=== PATIENT | female | born 1945 | race African-American/Black ===

== ENCOUNTER 2016-06-26 13:00 | Outpatient (RCR) | payer OTHER ==
[~2016-06-26 13:00] MED LIST: AMLODIPINE BESYL5 MG ORAL; ATORVASTATIN CA20 MG ORAL; ENALAPRIL MALEA20 MG ORAL; GLUCOTROL XL10 MG ORAL; JANUVIA100 MG ORAL; KLONOPIN0.5 MG ORAL; LANTUS5 UNITS SUBQ; METFORMIN HCL500 M1 ORAL; TENORMIN50 MG ORAL
== END 2016-07-14 | disposition home or self-care (01) ==
LOC: PTY 13:00
DX: M54.5 Low back pain (principal); E11.9 Type 2 diabetes mellitus without complications; M54.31 Sciatica, right side
CPT/HCPCS: 97035; 97110; 97162; G0283

== ENCOUNTER 2016-07-16 10:15 | Outpatient (RCR) | payer OTHER | END 2016-08-14 | disposition home or self-care (01) | LOC: PTY 10:15 | DX: M54.5 Low back pain (principal); E11.9 Type 2 diabetes mellitus without complications; M54.31 Sciatica, right side | CPT/HCPCS: 97035; 97110; 97140; G0283 ==

== ENCOUNTER 2016-08-18 12:55 | Outpatient (RCR) | payer OTHER | END 2016-09-13 | disposition home or self-care (01) | LOC: PTY 12:55 | DX: M54.5 Low back pain (principal); M54.31 Sciatica, right side; E11.9 Type 2 diabetes mellitus without complications | CPT/HCPCS: 97035; 97110; G0283 ==